=== PATIENT | female | born 1935 | race Caucasian/White ===

== ENCOUNTER 2018-11-22 10:08 | Emergency (ER) | payer MEDICARE ==
[~2018-11-22] VITALS: Ht 154.9 cm; Wt 72.7 kg
[~2018-11-22 10:08] MED LIST: AMBIEN 5MG TABLE5 MG PO; ASPIRIN 81M81 MG/TA2 PO; CIPRO 500MG TA500 MG PO; COLACE 100100 MG/CAP PO; CRANBERRY1 CAP PO; FERROUS SULFATE65 MG PO; GENTLE LAXATIVE10 MG RC; GLUCOPHAGE1000 MG PO; GLUCOTROL10 MG PO; HCTZ12.5TAB PO; IMODIUM 2MG CAPS2 MG PO; LEVEMIR100 U/ML SC; LIPITOR 80MG80 MG PO; LOTENSIN20 MG PO; MACROBID 1100 MG/CAP PO; METOPROLOL SUCC ER PO; MILK OF MA400 MG/5 M PO; MIRALAX PA17 GM/Dose PO; MYLANTA 150 ML150 M1 PO; NORCO 325 MG-51 TAB PO; NORVASC 5MG5 MG/TAB PO; NOVOLOG 100U100 U/M1 SC; OMNICEF 300MG300 MG PO; OSCAL 500 TAB500 MG PO; PLAVIX 75MG TAB75 MG PO; ROXICODONE 55 MG/TAB PO; SANTYL250 U/GM TP; SENOKOT8.6 MG PO; TOPROL XL100 MG PO; TYLENOL 325MG325 MG PO; TYLENOL EXTRA500 M1 PO; TYLENOL SU650 MG/SUP RC; VITAMIN C500 MG PO; VITAMIN D 400400 IU PO; XARELTO10 MG PO
[2018-11-22 10:09] VITALS: TEMP 98.4
[2018-11-22 11:05] LABS: BASO # 0.1 (0.0-0.2); BASO % 0.4 % (0.0-2.0); EOS # 0.1 (0.0-0.7); EOS % 1.1 % (0-4.0); GRAN # 8.9 (1.4-6.5); GRAN % 78.5 % (42.2-75.2); LYMPH % 8.4 % (20.0-51.0); MEAN CELL VOLUME 97 fl (80.0-100.0); MEAN CORPUSCULAR HGB CONC 31 g/dl (33.0-37.0); MEAN PLATELET VOLUME 11.9 fl (7.4-10.4); MONO # 1.3 (0.1-0.6); MONO % 11.2 % (1.7-9.3); PLATELET COUNT 228 K/mm3 (130-400); RED BLOOD COUNT 3.06 M/mm3 (4.10-5.30); REDCELL DISTRIBUTION WIDTH-CV 13.8 % (11.5-14.5)
[2018-11-22 11:07] LABS: HEMATOCRIT 29.7 % (37.0-47.0); HEMOGLOBIN 9.3 g/dl (12.5-16.0); MEAN CORPUSCULAR HEMOGLOBIN 30 pg (27.0-31.0)
[2018-11-22 11:15] LABS: BILIRUBIN,TOTAL 0.3 mg/dL (0.0-1.0); CALCIUM 8.2 mg/dL (8.4-10.2); CREATININE, serum 1.15 mg/dL (0.52-1.25); POTASSIUM 4.4 mmol/L (3.4-5.0); TOTAL PROTEIN 5.7 gm/dL (6.4-8.2)
[2018-11-22 11:23] LABS: COLLECTION METHOD CATHETER
[2018-11-22 11:32] LABS: PH 5 (5-8); SQUAMOUS EPITHELIAL 0-2 /hpf; URINE APPEARANCE Clear; URINE BACTERIA None Seen /hpf; URINE BILIRUBIN Negative (NEGATIVE); URINE BLOOD Negative (NEGATIVE); URINE COLOR Yellow; URINE GLUCOSE Negative (NEGATIVE); URINE KETONE Negative (NEGATIVE); URINE LEUKOCYTE ESTERASE Negative (NEGATIVE); URINE NITRATE Negative (NEGATIVE); URINE PROTEIN(semi-quant) 1+ (NEGATIVE); URINE RBC 0-2 /hpf; URINE UROBILINOGEN Negative (NEGATIVE); URINE WBC 0-2 /hpf
[2018-11-22 12:59] VITALS: BP 185/80; PULSE 72
== END 2018-11-22 13:15 | disposition home or self-care (01) ==
LOC: COL.ER 10:08
PROVIDERS: Emergency Medicine
DX: S83.92XA Sprain of unspecified site of left knee, initial encounter (principal); I10 Essential (primary) hypertension; E11.9 Type 2 diabetes mellitus without complications; E78.5 Hyperlipidemia, unspecified; Z79.82 Long term (current) use of aspirin; Z79.84 Long term (current) use of oral hypoglycemic drugs; X50.0XXA Overexertion from strenuous movement or load, initial encounter; Y92.009 Unspecified place in unspecified non-institutional (private) residence as the place of occurrence of the external cause
CPT/HCPCS: L1846

== ENCOUNTER 2018-11-26 12:57 | Inpatient (IN) | payer MEDICARE ==
[~2018-11-26] VITALS: Wt 72.3 kg
[2018-11-26 13:19] LABS: BASO # 0.1 (0.0-0.2); BASO % 0.4 % (0.0-2.0); EOS # 0.4 (0.0-0.7); EOS % 2.6 % (0-4.0); GRAN # 12.7 (1.4-6.5); GRAN % 85.6 % (42.2-75.2); LYMPH # 0.5 (1.2-3.4); LYMPH % 3.2 % (20.0-51.0); MEAN CELL VOLUME 93 fl (80.0-100.0); MEAN CORPUSCULAR HGB CONC 32 g/dl (33.0-37.0); MEAN PLATELET VOLUME 11.8 fl (7.4-10.4); MONO # 1.1 (0.1-0.6); MONO % 7.5 % (1.7-9.3); PLATELET COUNT 261 K/mm3 (130-400); RED BLOOD COUNT 3.27 M/mm3 (4.10-5.30); REDCELL DISTRIBUTION WIDTH-CV 13.4 % (11.5-14.5)
[2018-11-26 13:20] LABS: HEMATOCRIT 30.5 % (37.0-47.0); HEMOGLOBIN 9.8 g/dl (12.5-16.0); MEAN CORPUSCULAR HEMOGLOBIN 30 pg (27.0-31.0)
[2018-11-26 13:26] LABS: ALBUMIN 3.4 gm/dL (3.5-5.0); BILIRUBIN,TOTAL 0.8 mg/dL (0.0-1.0); CALCIUM 8.8 mg/dL (8.4-10.2); CREATININE, serum 0.96 mg/dL (0.52-1.25); POTASSIUM 3.8 mmol/L (3.4-5.0); TOTAL PROTEIN 6.4 gm/dL (6.4-8.2)
[2018-11-26 13:31] LABS: COLLECTION METHOD CATHETER
[2018-11-26 13:46] LABS: MUCOUS Present /lpf; PH 5 (5-8); SQUAMOUS EPITHELIAL 0-2 /hpf; URINE APPEARANCE Hazy; URINE BACTERIA None Seen /hpf; URINE BILIRUBIN Negative (NEGATIVE); URINE BLOOD Negative (NEGATIVE); URINE COLOR Yellow; URINE GLUCOSE 2+ (NEGATIVE); URINE KETONE Negative (NEGATIVE); URINE LEUKOCYTE ESTERASE Negative (NEGATIVE); URINE NITRATE Negative (NEGATIVE); URINE PROTEIN(semi-quant) 2+ (NEGATIVE); URINE UROBILINOGEN Negative (NEGATIVE)
[2018-11-26] MEDS ORDERED: CEPHALEXIN500 M1 PO (14:12)
[2018-11-26] MEDS ORDERED: CRANBERRY450 MG PO (14:12)
[2018-11-26] MEDS ORDERED: IRON 27 MG PO (14:13)
[2018-11-26] MEDS ORDERED: LEVEMIR FLEX100 U/ML SQ ×2 (14:15→15:21)
[2018-11-26] MEDS ORDERED: MULTIPLE VITAMI1 CAP PO (15:26)
[2018-11-26] MEDS ORDERED: NORCO 325 MG-51 TAB PO (15:27)
[2018-11-26] MEDS ORDERED: OYSCO 500 + D 51 TAB PO (15:28)
[2018-11-26] MEDS ORDERED: PROTONIX 40MG T40 MG PO (15:28)
[2018-11-26] MEDS ORDERED: VITAMIN D 400400 IU PO (15:29)
[2018-11-26] MEDS ORDERED: VITAMIN C500 MG PO (15:29)
[2018-11-26] MEDS ORDERED: GEODON80 MG PO (15:30)
--- NOTE | 2018-11-26 16:10 | NUR ---
Pt arrived to room 355 via cart with ED staff. Pt transferred from the cart to the floor bed with the assistance of two. Will complete assessment. Pt is resting quietly in the bed at this time and she denies further needs. Call light within reach, will continue to monitor.
[2018-11-26 16:15] VITALS: BP 154/71; PULSE 76; TEMP 99.3
--- NOTE | 2018-11-26 16:40 | NUR ---
Assessment complete. Pt is minimally responsinve but will track with her eyes upon entering the room. Breathing is even and unlabored on 3L via NC. Tele on. RW and LW INT's both flush easily, remain free of complications, and are CDI. Pt repositioned for comfort in the bed. Coccyx has a S1 pressure ulcer that is blanchable. Pt is resting quielty in the bed and she appears content. Call light within reach, will continue to monitor.
--- NOTE | 2018-11-26 18:41 | NUR ---
Since arriving to the floor the pt has been resting quietly. She is more responsive this evening; answering questions and eating her dinner with assistance. Family members are at the bedside; all questions answered. Pt is resting quietly in the bed at this time and she denies further needs. Call light within reach. Report given to FLORES Carlton.
[2018-11-26 19:16] VITALS: BP 163/77; PULSE 74; TEMP 98.1
[2018-11-26 20:10] VITALS: BP 155/99
--- NOTE | 2018-11-26 20:15 | NUR ---
Resting in bed. Assessment complete. Bases bilateral diminished. Otherwise clear. Bilateral lower leg edema +2. Stage 1 pressure ulcer present on coccyx. No dressing present at this time. Will turn Q2 and monitor. Blood pressure rechecked. 155/99 at this time. Will monitor. Denies needs. Call light in reach. Bed alarm in place.
[2018-11-26 23:17] VITALS: BP 180/60; PULSE 77; TEMP 97.6
[2018-11-27] VITALS (8 sets, daily range): BP systolic 152–189; BP diastolic 49–89; PULSE 71–86; TEMP 97.1–98.6
--- NOTE | 2018-11-27 | NUR ---
Blood pressure 180/60. Rechecked now 166/74. Gave PRN hydralazine as ordered for systolic above 160. Will closely monitor blood pressure. Patient denies needs. Call light in reach.
--- NOTE | 2018-11-27 00:55 | NUR ---
On bed sanchez x4 to urinate. Incontinent of urine prior to placement of bedpan. Care provided. Denies other needs at this time. Call light in reach. Bed alarm in place.
--- NOTE | 2018-11-27 03:47 | NUR ---
Lewis from telemetry called stating patient telemetry showed a short run of sinus tachycardia. Back in 80s to 90s. Resting in bed. Patient states she is feeling okay. Denies needs. Will monitor.
--- NOTE | 2018-11-27 04:30 | NUR ---
Resting in bed asleep. Call light in reach.
--- NOTE | 2018-11-27 06:22 | NUR ---
Had uneventful night. Called several times throughout night for bedpan. Incontinent at times. Care provided. Alert and partially orientated. Denies needs. Call light in reach.
[2018-11-27 07:03] LABS: BASO # 0.1 (0.0-0.2); BASO % 0.4 % (0.0-2.0); EOS # 0.6 (0.0-0.7); EOS % 5.3 % (0-4.0); GRAN # 8.9 (1.4-6.5); GRAN % 79.4 % (42.2-75.2); LYMPH # 0.7 (1.2-3.4); LYMPH % 6.5 % (20.0-51.0); MEAN CELL VOLUME 94 fl (80.0-100.0); MEAN CORPUSCULAR HGB CONC 32 g/dl (33.0-37.0); MEAN PLATELET VOLUME 11.6 fl (7.4-10.4); MONO # 0.9 (0.1-0.6); MONO % 7.9 % (1.7-9.3); PLATELET COUNT 262 K/mm3 (130-400); RED BLOOD COUNT 2.78 M/mm3 (4.10-5.30); REDCELL DISTRIBUTION WIDTH-CV 13.7 % (11.5-14.5)
[2018-11-27 07:05] LABS: HEMATOCRIT 26.1 % (37.0-47.0); HEMOGLOBIN 8.4 g/dl (12.5-16.0); MEAN CORPUSCULAR HEMOGLOBIN 30 pg (27.0-31.0)
[2018-11-27 07:19] LABS: CALCIUM 7.6 mg/dL (8.4-10.2); CREATININE, serum 0.86 mg/dL (0.52-1.25); POTASSIUM 3.1 mmol/L (3.4-5.0)
--- NOTE | 2018-11-27 08:30 | NUR ---
Initial assessment completed. No pain or needs reported. The patient has been able to call for assistance. Some minimal assistance with breakfast provided. However the patient was able to get up with physical therapy.
--- NOTE | 2018-11-27 13:21 | NUR ---
Plan to go to [facility] for Skilled. Pt reports that her kari Bowles is her care support. Pt indicated that she uses a walker and O2 daily. Patient reports that her PCP is Dr. Castro and that she uses [facility] in town for her RX. Pt indiciated that her son Lauri is her DPOA but does not remember the phone number. SW called Eveline to confirm placement. Placement is confirmed. Needs PT/OT screen. No additional needs identifed at this time.
--- NOTE | 2018-11-28 01:57 | NUR ---
THE PT WAS BEDRESTING WITH TV ON, PLEASANT, CONFUSED. HAD JUST FINISHED WITH HER SUPPER, TRAY REMOVED. THE PT VOIDED AND HAD A SMALL LOOSE UNFORMED SEEDY BM. SHE CALLED AGAIN A SHORT TIME LATER FOR THE BED JOHNSON, WAS ALREADY INCONTINNENT IN HER ADULT DIAPER A SMALL AMOUNT. SHE GOT HER 2 REMAINING IV BAGS OF POTASSIUM REPLACEMENT. FINISHED THE MG+, IV ABX. DENIED PAIN, REPOSITIONED UP IN BED. TOOK MEDS WHOLE WITH WATER, 1 AT A TIME, NO DIFFICULTY. ACCUCHECK WAS 291, GOT 6 UNITS SLIDING SCALE. LUNG SOUNDS ARE VERY DIMINISHED THROUGH OUT. MEPLEX TO STAGE 2 ON COCCYX, "OFF- LOADING". APPEARS TO GET ADEQUATE SLEEP.
--- NOTE | 2018-11-28 03:18 | NUR ---
THE PT IS BEDRESTING WITH EYES CLOSED, RESP EVEN
[2018-11-28 03:31] VITALS: BP 143/55; PULSE 73; TEMP 97
--- NOTE | 2018-11-28 05:07 | NUR ---
BEDRESTING WITH EYES CLOSED, RESP EVEN.
[2018-11-28 07:13] LABS: BASO % 0.2 % (0.0-2.0); EOS # 0.6 (0.0-0.7); EOS % 6.2 % (0-4.0); GRAN # 6.7 (1.4-6.5); GRAN % 74.8 % (42.2-75.2); LYMPH # 0.9 (1.2-3.4); LYMPH % 10.3 % (20.0-51.0); MEAN CELL VOLUME 94 fl (80.0-100.0); MEAN CORPUSCULAR HGB CONC 32 g/dl (33.0-37.0); MEAN PLATELET VOLUME 11.6 fl (7.4-10.4); MONO # 0.7 (0.1-0.6); MONO % 7.9 % (1.7-9.3); PLATELET COUNT 270 K/mm3 (130-400); REDCELL DISTRIBUTION WIDTH-CV 13.8 % (11.5-14.5)
--- NOTE | 2018-11-28 07:15 | NUR ---
Pt asleep but awakens when staff walks into room. Pt correctly states name, , location and situation. Pt wishes to resume sleep. Call light within reach.
--- NOTE | 2018-11-28 07:29 | NUR ---
THE PT WAS AWAKE, BEDRESTING, REPORT TO LOUISA TANNER, AT BEDSIDE TO MEET PT AND CHECK INT'S ETC. THE PT WAS ABLE TO STATE HER NAME, HER AND CORRECTLY STATED THAT SHE WAS AT THE HOSPITAL IN [place].
[2018-11-28 07:30] LABS: MEAN CORPUSCULAR HEMOGLOBIN 30 pg (27.0-31.0)
[2018-11-28 07:31] LABS: HEMATOCRIT 25.3 % (37.0-47.0)
[2018-11-28 07:32] LABS: CALCIUM 7.6 mg/dL (8.4-10.2); CREATININE, serum 0.98 mg/dL (0.52-1.25); MAGNESIUM 1.6 mg/dL (1.6-2.3); POTASSIUM 3.9 mmol/L (3.4-5.0)
[2018-11-28 07:42] VITALS: BP 161/50; PULSE 75; TEMP 98.4
[2018-11-28 11:15] VITALS: BP 179/75; PULSE 77; TEMP 97.7
[2018-11-28 16:08] VITALS: BP 136/50; PULSE 79; TEMP 98.6
--- NOTE | 2018-11-28 19:00 | NUR ---
Report received from FLORES Barker. Resting in bed. Asleep call light in reach.
[2018-11-28 19:49] VITALS: BP 172/83; PULSE 73; TEMP 99.2
--- NOTE | 2018-11-28 21:52 | NUR ---
Resting in bed. Assessment complete. Buttock has abrasion present. Open to air at this time. Right lung diminished. Left lower lobe crackles. Bilateral lower leg edema +1. Incontinent of urine. Care provided. Linens changes. Patient alert partially orientated. States "my boyfriend needs to put a ring on my finger because these old guys are interested in me." Denies pain. Denies needs. Call light in reach. Bed alarm in place.
[2018-11-28 22:39] VITALS: BP 145/50
[2018-11-29] VITALS: BP 146/73; PULSE 64; TEMP 98.5
--- NOTE | 2018-11-29 01:00 | NUR ---
Resting in bed. Incontinent of urine. Care provided. Denies needs. Call light in reach.
[2018-11-29 04:04] VITALS: BP 122/40; PULSE 66; TEMP 98.6
--- NOTE | 2018-11-29 04:15 | NUR ---
Resting in bed. Incontinent of urine. Care provided. Denies other needs at this time. Call light in reach.
[2018-11-29 06:09] LABS: BASO % 0.3 % (0.0-2.0); EOS # 0.7 (0.0-0.7); EOS % 6.7 % (0-4.0); GRAN % 72.7 % (42.2-75.2); LYMPH # 1.1 (1.2-3.4); LYMPH % 10.1 % (20.0-51.0); MEAN CELL VOLUME 92 fl (80.0-100.0); MEAN CORPUSCULAR HGB CONC 32 g/dl (33.0-37.0); MEAN PLATELET VOLUME 11.1 fl (7.4-10.4); MONO # 1.1 (0.1-0.6); MONO % 9.5 % (1.7-9.3); PLATELET COUNT 323 K/mm3 (130-400); RED BLOOD COUNT 2.95 M/mm3 (4.10-5.30); REDCELL DISTRIBUTION WIDTH-CV 13.4 % (11.5-14.5)
--- NOTE | 2018-11-29 06:14 | NUR ---
Uneventful night. Resting in bed. Denies needs. Call light in reach.
[2018-11-29 06:18] LABS: CALCIUM 8.3 mg/dL (8.4-10.2); CREATININE, serum 1.02 mg/dL (0.52-1.25); POTASSIUM 3.7 mmol/L (3.4-5.0)
[2018-11-29 06:19] LABS: HEMATOCRIT 27.2 % (37.0-47.0); HEMOGLOBIN 8.7 g/dl (12.5-16.0); MEAN CORPUSCULAR HEMOGLOBIN 29 pg (27.0-31.0)
[2018-11-29 07:39] VITALS: BP 154/54; PULSE 65; TEMP 98.4
--- NOTE | 2018-11-29 08:30 | NUR ---
PATIENT ASSESSMENT COMPLETED. SHE DENIES PAIN OR SOB. CLEANED UP AND REPOSITIONED FOR BREAKFAST.
[2018-11-29 11:34] VITALS: BP 147/58; PULSE 75; TEMP 98.8
[2018-11-29 15:45] VITALS: BP 139/60; PULSE 71; TEMP 99.3
--- NOTE | 2018-11-29 19:15 | NUR ---
Report received from FLORES Leon. Resting in bed. Denied needs. Call light in reach.
[2018-11-29 21:31] VITALS: BP 151/57; PULSE 78; TEMP 98.9
--- NOTE | 2018-11-29 21:50 | NUR ---
Resting in bed. Assessment complete. Alert and orientated to self and place. Left lung hernández diminished, right lower lobe diminished. +2 edema present in bilateral lower legs. Denies pain. Incontinent care provided. Denies other needs. Call light in reach.
[2018-11-30] VITALS (8 sets, daily range): BP systolic 134–156; BP diastolic 45–94; PULSE 70–75; TEMP 97.1–98.9
--- NOTE | 2018-11-30 00:23 | NUR ---
Incontinent care provided and repositioned. Denies needs. Call light in reach.
--- NOTE | 2018-11-30 02:30 | NUR ---
Removed telemetry and gown. Replaced both. Educate on purpose. Repositioned. Call light in reach.
--- NOTE | 2018-11-30 04:12 | NUR ---
Removed gown. Incontinent of urine. Care provided. Repositioned. Call light in reach.
--- NOTE | 2018-11-30 04:18 | NUR ---
POSTDOCTORAL RESEARCH FELLOW reports patient 85% on room air. Reassessed patient. Patient drowsy. 84-87% on room air. Placed on 2L nasal cannula now 93%.
[2018-11-30 07:28] LABS: BASO % 0.2 % (0.0-2.0); EOS # 0.7 (0.0-0.7); GRAN # 11.7 (1.4-6.5); GRAN % 81.4 % (42.2-75.2); LYMPH # 0.8 (1.2-3.4); LYMPH % 5.4 % (20.0-51.0); MEAN CELL VOLUME 93 fl (80.0-100.0); MEAN CORPUSCULAR HGB CONC 31 g/dl (33.0-37.0); MEAN PLATELET VOLUME 11.6 fl (7.4-10.4); MONO % 7.2 % (1.7-9.3); PLATELET COUNT 371 K/mm3 (130-400); RED BLOOD COUNT 3.03 M/mm3 (4.10-5.30); REDCELL DISTRIBUTION WIDTH-CV 13.4 % (11.5-14.5)
[2018-11-30 07:29] LABS: CALCIUM 8.7 mg/dL (8.4-10.2); CREATININE, serum 0.99 mg/dL (0.52-1.25)
[2018-11-30 07:47] LABS: HEMATOCRIT 28.3 % (37.0-47.0); HEMOGLOBIN 8.9 g/dl (12.5-16.0); MEAN CORPUSCULAR HEMOGLOBIN 29 pg (27.0-31.0)
--- NOTE | 2018-11-30 10:11 | NUR ---
Assessment completed, very drowsy/ able to arouse, oriented to person, denies pain and does not appear to be in any acute pain or discomfort, vital signs stable, lungs dimnished throughout, WBC upt to 14.4 today/ ID consulted, frequent position changes and incontinent care provided, has Stg.II to left upper coccygeal area, helped her with breakfast/ patient does cough with thin liquids, ST referral made for eval, will continue to monitor
--- NOTE | 2018-11-30 10:28 | NUR ---
SW attended clinical rounds. Infectious Disease and ST have been consulted. GIORGI [place] [facility] [place]
--- NOTE | 2018-11-30 11:26 | NUR ---
Initial visit; Patient thanked End Lathe Operator for looking in on her and offering God's blessings.
--- NOTE | 2018-11-30 20:56 | NUR ---
Resting in bed. Incontinent of urine. Care provided. Assessment complete. Bases bilaterally diminshed. Bilateral lower leg edema +1. Alert to self. Denies pain. Denies needs at this time. call light in reach.
--- NOTE | 2018-11-30 22:11 | NUR ---
Resting in bed. Denies needs. Call light in reach.
[2018-12-01] VITALS (7 sets, daily range): BP systolic 127–139; BP diastolic 43–56; PULSE 64–72; TEMP 97.8–99.2
--- NOTE | 2018-12-01 02:31 | NUR ---
Resting in bed. Denies needs. Call light in reach.
--- NOTE | 2018-12-01 04:37 | NUR ---
Resting in bed asleep. Call light in reach.
--- NOTE | 2018-12-01 06:10 | NUR ---
Uneventful night. Incontinent of urine throughout night. Care provided each time. Repositioned and incontinent care provided at this time. Denies needs. Call light in reach. Bed alarm in place.
[2018-12-01 07:10] LABS: BASO % 0.2 % (0.0-2.0); EOS # 0.9 (0.0-0.7); GRAN % 75.9 % (42.2-75.2); LYMPH % 7.5 % (20.0-51.0); MEAN CELL VOLUME 93 fl (80.0-100.0); MEAN CORPUSCULAR HGB CONC 32 g/dl (33.0-37.0); MONO # 1.1 (0.1-0.6); PLATELET COUNT 359 K/mm3 (130-400); RED BLOOD COUNT 2.94 M/mm3 (4.10-5.30); REDCELL DISTRIBUTION WIDTH-CV 13.4 % (11.5-14.5)
[2018-12-01 07:14] LABS: HEMATOCRIT 27.2 % (37.0-47.0); HEMOGLOBIN 8.7 g/dl (12.5-16.0); MEAN CORPUSCULAR HEMOGLOBIN 30 pg (27.0-31.0)
[2018-12-01 07:28] LABS: CALCIUM 8.4 mg/dL (8.4-10.2); CREATININE, serum 1.02 mg/dL (0.52-1.25); POTASSIUM 4.1 mmol/L (3.4-5.0)
--- NOTE | 2018-12-01 08:25 | NUR ---
Assessment completed, alert/oriented to person but not place or time, denies pain or discomfort this morning, vital signs stable, o2 sats WNL on 1L. oxygen, lungs are clear/ diminished bases, no resp.difficulty noted, WBC down a little today at 13.2 / she is not running fever, heart RRR/distal pulses are palpable, ST in room at this time to evaluate and help with breakfast, we have repositioned and provided incontinent care at this time as well, small pressure sore to left upper buttock/ dressing in place/ q2hr turn schedule and freq. incontinent care being provided
--- NOTE | 2018-12-01 11:58 | NUR ---
SW contacted [facility] and informed them of the patient's tentative discharge for tomorrow, 12/02. Transportation was set for 1300. SW to continue to follow.
[2018-12-01 15:26] LABS: BASO % 0.3 % (0.0-2.0); EOS # 0.7 (0.0-0.7); EOS % 5.3 % (0-4.0); GRAN # 10.9 (1.4-6.5); GRAN % 78.7 % (42.2-75.2); MEAN CELL VOLUME 94 fl (80.0-100.0); MEAN CORPUSCULAR HGB CONC 32 g/dl (33.0-37.0); MONO # 1.1 (0.1-0.6); MONO % 7.8 % (1.7-9.3); PLATELET COUNT 371 K/mm3 (130-400); RED BLOOD COUNT 2.83 M/mm3 (4.10-5.30); REDCELL DISTRIBUTION WIDTH-CV 13.3 % (11.5-14.5)
[2018-12-01 15:27] LABS: HEMATOCRIT 26.5 % (37.0-47.0); HEMOGLOBIN 8.4 g/dl (12.5-16.0); MEAN CORPUSCULAR HEMOGLOBIN 30 pg (27.0-31.0)
--- NOTE | 2018-12-01 20:37 | NUR ---
Resting in bed. Incontinent of urine. Care provided. Coccyx red, skin peeling, pain full to clean area. Applied dressed and positioned patient off coccyx. Assessment complete. Right lung crackles. Left lung clear. Bilateral +1 lower leg edema. Denies needs. Call light in reach. Bed alarm in place. Will monitor.
--- NOTE | 2018-12-01 22:55 | NUR ---
Patient refused to take geodon and lipitor at this time. Pt drowsy. Agreed to heparin, novolog, and levemir.
--- NOTE | 2018-12-02 00:15 | NUR ---
Resting in bed. Repositioned. Call light in reach.
[2018-12-02 03:37] VITALS: BP 140/47; PULSE 66; TEMP 98
--- NOTE | 2018-12-02 04:00 | NUR ---
Repositioned, brief dry. Call light in reach.
--- NOTE | 2018-12-02 06:05 | NUR ---
Incontinent throughout night and this AM. Care provided. Refused geodon and lipitor at HS. Repositioned Q2H. Denies needs at this time. Call light in reach. Bed alarm in place.
[2018-12-02 06:47] LABS: MEAN CELL VOLUME 91 fl (80.0-100.0); MEAN CORPUSCULAR HGB CONC 32 g/dl (33.0-37.0); MEAN PLATELET VOLUME 11.1 fl (7.4-10.4); PLATELET COUNT 364 K/mm3 (130-400); RED BLOOD COUNT 2.79 M/mm3 (4.10-5.30); REDCELL DISTRIBUTION WIDTH-CV 13.5 % (11.5-14.5)
[2018-12-02 06:52] LABS: CALCIUM 8.2 mg/dL (8.4-10.2); CREATININE, serum 1.1 mg/dL (0.52-1.25)
[2018-12-02 06:57] LABS: HEMATOCRIT 25.4 % (37.0-47.0); HEMOGLOBIN 8.2 g/dl (12.5-16.0); MEAN CORPUSCULAR HEMOGLOBIN 29 pg (27.0-31.0)
[2018-12-02 07:50] VITALS: BP 133/42; PULSE 67; TEMP 98
--- NOTE | 2018-12-02 08:39 | NUR ---
Assessment completed, patient is lethargic this morning, vital signs are stable/ afebrile, her skin is clammy/ diaphoretic, she denies pain or feeling bad, she just stated she is very tired, WBC still 13.9, lungs CTA/ no resp.difficulty, heart RRR/distal pulses are palpable, will continue to monitor
[2018-12-02 08:41] LABS: EOSINOPHIL 6 % (0-4); LYMPHOCYTE 9 % (20.0-51.0); NEUTROPHILS 82 % (42.0-75.2)
[2018-12-02 08:44] VITALS: BP 154/54; PULSE 67; TEMP 98.4
[2018-12-02 08:47] LABS: POIKILOCYTOSIS 1+
[2018-12-02 08:48] LABS: HYPOCHROMIA 1+
--- NOTE | 2018-12-02 09:49 | NUR ---
rechecked a blood glucose and it was 58, this could explain the lethargy and diaphoresis, TYRE RETREADER in room helping her with breakfast now, she is already appearing more alert
[2018-12-02] MEDS ORDERED: TOPROL XL200 MG PO (09:56)
[2018-12-02] MEDS ORDERED: NORVASC 10MG10 MG PO (09:56)
[2018-12-02] MEDS ORDERED: NORCO 325 MG-51 TAB PO (10:02)
[2018-12-02] MEDS ORDERED: IPRATROPIUM BROM3 M1 IH (10:39)
[2018-12-02] MEDS ORDERED: LEVEMIR FLEX100 U/ML SQ (10:54)
[2018-12-02 11:08] VITALS: BP 130/45; PULSE 64; TEMP 98
--- NOTE | 2018-12-02 11:19 | NUR ---
The patient is to discharge today, 12/02, to [facility] for a skilled stay. Transportation was set for 1300, via [facility]. SW informed the patient's nurse and the patient's son, via phone. They were both in agreeance. GIORGI also explained the IM form to he patient's son, Lauri, via phone. The patient's son verbalized understanding and gave SW his verbal consent. No additional needs at this time.
--- NOTE | 2018-12-02 17:07 | NUR ---
patient transferred [facility], IV removed prior to discharge
== END 2018-12-02 17:08 | DRG 871 ==
LOC: COL.ER 12:57 → MEDICAL 14:46
PROVIDERS: Emergency Medicine; Nurse Practitioner Family; Physician Assistant; ADMIT Internal Medicine
DX: A41.9 Sepsis, unspecified organism (principal); J18.9 Pneumonia, unspecified organism; G92 Toxic encephalopathy; I50.33 Acute on chronic diastolic (congestive) heart failure; I25.10 Atherosclerotic heart disease of native coronary artery without angina pectoris; I11.0 Hypertensive heart disease with heart failure; F03.90 Unspecified dementia, unspecified severity, without behavioral disturbance, psychotic disturbance, mood disturbance, and anxiety; E11.649 Type 2 diabetes mellitus with hypoglycemia without coma; E78.5 Hyperlipidemia, unspecified; Z79.4 Long term (current) use of insulin; D50.9 Iron deficiency anemia, unspecified; I27.20 Pulmonary hypertension, unspecified; L89.321 Pressure ulcer of left buttock, stage 1
CPT/HCPCS: 99223-AI; 99232-AI; 99233-AI; 99239; A4216; G8978-GP; G8979-GP; G8987-GO; G8988-GO; J0360; J0456; J0692; J0696; J1644; J1815; J1940; J3370; J3475; J3480; J7030; J7050